=== PATIENT | female | born 1940 | race Asian ===

== ENCOUNTER 2018-06-26 14:47 | Emergency (ER) | payer MEDICARE, OTHER ==
[~2018-06-26] VITALS: Ht 157.5 cm; Wt 56.7 kg
[~2018-06-26 14:47] MED LIST: AML5T PO; ATEN-60 PO; ATOR10TA52 PO; BACL10TA PO; CLON0.5T10 PO; METF-370 PO
[2018-06-26 15:00] VITALS: BP 150/80
== END 2018-06-26 16:00 | disposition home or self-care (01) ==
LOC: ER 14:47
DX: S50.12XA Contusion of left forearm, initial encounter (principal); E11.9 Type 2 diabetes mellitus without complications; E78.5 Hyperlipidemia, unspecified; I10 Essential (primary) hypertension; Z79.84 Long term (current) use of oral hypoglycemic drugs; Z79.899 Other long term (current) drug therapy; Z90.710 Acquired absence of both cervix and uterus; W01.0XXA Fall on same level from slipping, tripping and stumbling without subsequent striking against object, initial encounter; Y93.89 Activity, other specified; Y99.8 Other external cause status; Y92.098 Other place in other non-institutional residence as the place of occurrence of the external cause
CPT/HCPCS: 73090